=== PATIENT | male | born 1940 | race Caucasian/White ===

== ENCOUNTER 2018-09-21 10:09 | Day surgery (SDC) | payer MEDICARE, SELFPAY ==
--- NOTE | 2018-09-21 07:58 | PM.HP.1 ---
History of Present Illness Date Patient Seen: 09/21/18 Chief complaint: [id number] COLONOSCOPY Narrative: 78-year-old male with a history of bladder cancer status post chemotherapy and cystectomy in 2014 here for colon polyp surveillance. He has a history of an adenomatous colon polyp in 2013. He has had prior rectal surgery for a fistula in 1998 Patient History Medical History Afib (Acute) Bladder cancer (Acute ~2014) Hard of hearing (Acute) History of colon polyps (Acute) Low back pain (Acute) Surgical History H/O nasal septoplasty (Acute) History of appendectomy (Acute) History of orchiectomy (Acute ~1960) History of rectal surgery (Acute) History of tonsillectomy (Acute) Social History household members: spouse Meds Home Medications Medication Instructions Recorded Confirmed Type allopurinol 300 mg PO DAILY 09/21/18 09/21/18 History escitalopram oxalate 20 mg PO DAILY 09/21/18 09/21/18 History Allergies Allergy/AdvReac Type Severity Reaction Status Date / Time No Known Drug Allergies Allergy Verified 09/21/18 10:31 Exam Narrative Exam Narrative: General: Patient is well developed, not in apparent distress Cardiovascular: Regular rate and rhythm, no murmurs, rubs, or gallops; no evidence of edema; no palpable abdominal aortic aneurysm Gastrointestinal: Normoactive bowel sounds, soft, nontender, nondistended, no rebound tenderness, no hepatosplenomegaly, no evidence of hernia; positive surgical scars, positive urostomy bag Assessment & Plan Assessment & Plan narrative: 78-year-old male with history of bladder cancer status post chemotherapy and cystectomy who is here for colon polyp surveillance. Last colonoscopy was performed in 2013 showing an adenomatous colon polyp. Regarding the procedure(s), the risks and potential complications, benefits, and alternatives (including not doing the procedure) were discussed with the patient. The risks include but are not limited to bleeding, splenic injury, infection, perforation which may require surgical intervention, missed lesions, and adverse reactions to sedative medicines. After a question and answer period, the patient agreed to proceed with the procedure(s) and gives informed consent.
[2018-09-21 10:26] VITALS: BP 135/86; PULSE 92; RESP 16; TEMP 36.7; O2SAT 97; BMI 31.4
[2018-09-21] MEDS: SODIUM CHLORIDE 0.9% 1,000 ML 70 ML IV (10:26)
[2018-09-21] MEDS: MIDAZOLAM 5 MG/5 ML VIAL IV (11:46)
[2018-09-21] MEDS: fentaNYL 250 MCG/5 ML INJ IV (11:47)
--- NOTE | 2018-09-21 11:59 | PM.OP.ENDO ---
Operative Date/Time/Diagnoses Date of procedure: 09/21/18 Procedure Notes Procedure in detail: Surgeon: Salvador Perry MD Procedure: Colonoscopy Preoperative diagnosis: Colon polyp surveillance, prior adenoma in 2013 Postoperative diagnosis: Sigmoid diverticulosis, grade 1 internal hemorrhoids Medications: Conscious sedation using 5 mg IV of Midazolam and 150 mcg IV of Fentanyl Preanesthesia Assessment An H and P was performed/updated and the Px?s ASA class is 2. The procedure was discussed in detail with the patient. The potential risks and complications including infection, bleeding, missed lesions, perforation, need for surgery in case of perforation, prolonged hospital stay, and were explained. A brief question and answer period was allotted and once all questions were answered, informed consent was obtained. The patient was brought back to the procedure room and placed on standard monitoring. The patient?s vital signs were monitored continuously throughout the entire procedure. Prior to starting, a timeout was performed to confirm the patient?s identity, allergies, medications, and procedure. Procedure in detail The patient was placed in left lateral decubitus position and once adequate sedation was obtained a CHERIE was performed. The digital rectal examination did not reveal any palpable lesions, but there appeared to be postoperative changes due to his prior anorectal surgery. The tip of the colonoscope was placed in the anal canal and advanced to the rectosigmoid where there was note of an area of fixation. This area was eventually traversed with scope reduction and use of the scope stiffener. Once this area was passed, the colonoscope was advanced without difficulty all the way to the cecum, which was identified by the appendiceal orifice and the ileocecal valve. Careful examination of all pulido of the colon was performed with irrigation of any residual stool. There was no evidence of polyps throughout the entire colon There was note of multiple small to medium-sized diverticula in the sigmoid colon Retroflexion performed in the rectum revealed grade 1 internal hemorrhoids The patient tolerated the procedure well and will be brought back to the recovery area to be discharged once criteria are met. The prep was judged to be good and adequate to identify polyps less than 5 mm. The withdrawal time was 7 min. The total physician intraservice time was 27 min. Complications There were no complications and estimated blood loss was zero. Recommendations: Resume previous diet Continue outPx medications Can consider repeat colonoscopy in 5 years for surveillance however given patient's age and comorbidities this would be optional An emergency contact number was given to the patient for any complications related to the procedure
[2018-09-21 12:02] VITALS: BP 98/66; PULSE 87; RESP 11; O2SAT 95
--- NOTE | 2018-09-21 12:06 | P.DS_ITS ---
History of Present Illness Chief complaint: [id number] COLONOSCOPY Narrative: 78-year-old male with a history of bladder cancer status post chemotherapy and cystectomy in 2014 here for colon polyp surveillance. He has a history of an adenomatous colon polyp in 2013. He has had prior rectal surgery for a fistula in 1998 Discharge Providers Discharge Date: 09/21/18 Primary care physician: Selene Shultz MD Discharge provider: Salvador Perry MD Exam Vital Signs (past 8 hours): - 09/21/18 10:26 Temperature 98.1 F Pulse Rate 92 H Respiratory Rate 16 Blood Pressure 135/86 Pulse Oximetry 97 Oxygen Delivery Method Room Air Narrative Exam Narrative: General: Patient is obese, not in apparent distress Cardiovascular: Regular rate and rhythm, no murmurs, rubs, or gallops; no evidence of edema; no palpable abdominal aortic aneurysm Gastrointestinal: Normoactive bowel sounds, soft, nontender, nondistended, no rebound tenderness, no hepatosplenomegaly, no evidence of hernia; positive urostomy bag and surgical scars Discharge Plan Discharge Plan Patient Disposition: Home Discharge Med Rec/Prescriptions Prescriptions: Continued allopurinol 300 mg Tablet 300 mg PO DAILY RF: 0 escitalopram oxalate 20 mg Tablet 20 mg PO DAILY RF: 0 Follow up/Referrals: Selene Shultz MD [Primary Care Provider] - Discharge Orders: Discharge (Order); Ordered 09/21/18 Ordered By: Salvador Perry Provider Discharge Instructions Diet: Diet as Tolerated Visit Report/Discharge Packet Stand Alone Forms: Colonoscopy Result: [facility] Discharge Data Primary Care Provider: Selene Shultz Attending Provider: Salvador Perry
[2018-09-21 12:12] VITALS: BP 107/73; PULSE 85; RESP 15; TEMP 36.8; O2SAT 94
[2018-09-21 12:24] VITALS: BP 108/76; PULSE 85; RESP 16; TEMP 36.8; O2SAT 95
== END 2018-09-21 12:33 | disposition home or self-care (01) ==
PROVIDERS: Family Provider Internal Medicine; PCP Internal Medicine; Visit Provider Internal Medicine Gastroenterology
PROC: 0DJD8ZZ Inspection of Lower Intestinal Tract, Via Natural or Artificial Opening Endoscopic (ICD-10-PCS; CPT 45378; principal; 2018-09-21 11:30)
DX: Z86.010 Personal history of colon polyps (principal); K57.30 Diverticulosis of large intestine without perforation or abscess without bleeding; K64.0 First degree hemorrhoids; I48.91 Unspecified atrial fibrillation
CPT/HCPCS: G0105; J2250; J3010

== ENCOUNTER → 2020-01-08 16:17 | Outpatient (ROUT) | payer MEDICARE, SELFPAY ==
[2020-01-08 16:48] LABS: BUN Creatinine Ratio 19.8 (6-22); Blood Urea Nitrogen 19 mg/dL (9-20); Calcium 9.4 mg/dL (8.4-10.2); Carbon Dioxide 27 mmol/L (22-32); Chloride 100 mmol/L (98-107); Estimated Glomerular Filt Rate > 60.0 mL/min (>60); Glucose 90 mg/dL (80-110); HEMOLYSIS < 15 (0-50); Potassium 4.1 mmol/L (3.4-5.1); Sodium 135 mmol/L (137-145); Uric Acid 5.6 mg/dL (3.5-8.5)
== END ==
PROVIDERS: Family Provider Internal Medicine; PCP Internal Medicine; Visit Provider Internal Medicine
DX: M10.9 Gout, unspecified (principal)
CPT/HCPCS: 80048; 84550

== ENCOUNTER → 2020-02-05 16:29 | Outpatient (CLI) | payer MEDICARE, SELFPAY ==
--- NOTE | 2020-02-05 16:34 | DI.RAD.S_ITS ---
PROCEDURE: XR HAND RT MIN 3V INDICATIONS: RIGHT HAND PAIN TECHNIQUE: 3 views of the hand(s) acquired. COMPARISON: None. FINDINGS: Bones: No fractures or dislocations. Carpal bones are normally aligned. No suspicious bony lesions. Diffuse moderate interphalangeal osteoarthritis. 1st CMC and triscaphe joint degeneration. Chronic appearing ossicle projects adjacent to the ulnar styloid possibly loose body possible ulnocarpal chondrocalcinosis Soft tissues: No suspicious soft tissue calcifications. 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 on 02/05/2020 at 17:21 Approved by: Bjorn Dunham M.D. on 02/05/2020 at 17:25
== END ==
PROVIDERS: Family Provider Internal Medicine; PCP Internal Medicine; Referring Provider Internal Medicine; Visit Provider Internal Medicine
DX: M79.641 Pain in right hand (principal); M18.11 Unilateral primary osteoarthritis of first carpometacarpal joint, right hand; M19.031 Primary osteoarthritis, right wrist
CPT/HCPCS: 73130

== ENCOUNTER → 2020-04-22 19:53 | Outpatient (ROUT) | payer MEDICARE, SELFPAY ==
[2020-04-22 20:05] LABS: Add Manual Diff / Slide Review NO; Basophils Absolute Auto 0 /uL (0-100); Basophils Percent Auto 0.6 % (0-2); Eosinophils Absolute Auto 100 /uL (0-450); Eosinophils Percent Auto 1.3 % (2-4); Hematocrit 41.2 % (41-53); Hemoglobin 13.6 g/dL (13.5-17.5); Lymphocytes Absolute Auto 1300 /uL (1100-4500); Mean Corpuscular HGB Conc 33.1 % (30-36); Mean Corpuscular Hemoglobin 30.3 PG (26-34); Mean Corpuscular Volume 91.6 fL (80-100); Monocytes Absolute Auto 700 /uL (0-900); Monocytes Percent Auto 8.9 % (3-14); Neutrophils Absolute Auto 5900 /uL (1500-7000); Neutrophils Percent Auto 73.2 % (50-75); Platelet Count 216 X10^3/uL (150-400); Red Blood Cell Count 4.49 X10^6/uL (4.5-5.9); Red Cell Distribution Width 13.9 % (11.6-14.8); White Blood Cell Count 8.1 X10^3/uL (4.5-11.0)
[2020-04-22 20:10] LABS: Alanine Aminotransferase 18 IU/L (<50); Albumin 3.9 g/dL (3.5-5.0); Albumin Globulin Ratio 1.3 (1.0-2.8); Alkaline Phosphatase 79 U/L (38-126); Aspartate Aminotransferase 40 IU/L (17-59); BUN Creatinine Ratio 15.9 (6-22); Bilirubin Total 0.5 mg/dL (0.2-1.3); Blood Urea Nitrogen 14 mg/dL (9-20); Calcium 9.5 mg/dL (8.4-10.2); Carbon Dioxide 30 mmol/L (22-32); Chloride 102 mmol/L (98-107); Estimated Glomerular Filt Rate > 60.0 mL/min (>60); Glucose 86 mg/dL (80-110); HEMOLYSIS < 15 (0-50); Potassium 4.3 mmol/L (3.4-5.1); Sodium 137 mmol/L (137-145); Total Protein 6.9 g/dL (6.3-8.2)
== END ==
PROVIDERS: Family Provider Internal Medicine; PCP Internal Medicine; Visit Provider Internal Medicine
DX: R10.30 Lower abdominal pain, unspecified (principal)
CPT/HCPCS: 80053; 85025

== ENCOUNTER → 2020-04-30 13:00 | Outpatient (CLI) | payer MEDICARE, SELFPAY ==
--- NOTE | 2020-04-30 14:07 | DI.CT.S_ITS ---
PROCEDURE: CT ABDOMEN PELVIS W CON INDICATIONS: Lower abdominal pain, unspecified. History of bladder carcinoma, possible diverticulitis. TECHNIQUE: After the administration of oral and intravenous contrast, 5 mm thick sections acquired from the diaphragms to the symphysis. 5 mm thick coronal and sagittal reformats were performed. For radiation dose reduction, the following was used: automated exposure control, adjustment of mA and/or kV according to patient size. COMPARISON: [facility], CT, CT CHEST ABDOMEN PELVIS WITH CONTRAST, 04/13/2019, 11:23. FINDINGS: Image quality: Excellent. ABDOMEN: Lung bases: Lung bases are clear. Heart size is normal. Solid organs: Liver is normal in size and enhancement. Gallbladder normal in appearance. Biliary system is non-dilated. Pancreas enhances normally. Spleen is normal in size and enhancement. No adrenal nodules. Kidneys are normal in size and enhancement, without hydronephrosis. Peritoneum and bowel: Stomach, small bowel, and colon loops are normal in caliber and wall thickness. No free fluid or air. Nodes and vessels: No retroperitoneal or mesenteric adenopathy. Aorta and inferior vena cava are normal in caliber. Miscellaneous: No ventral hernias. PELVIS: Genitourinary: Bladder has been previously resected. No recurrent neoplasm in the operative bed is found. No regional or distant metastatic disease is suspected. Note is made of a urinary diversion on the right, through an ostomy at the right lower quadrant.. Miscellaneous: No evidence of diverticulitis or neoplasm throughout the pelvis. Bones: No suspicious bony lesions. No vertebral body compression fractures. IMPRESSION: Expected postoperative changes after bladder resection, with no evidence of recurrent neoplasm or distant metastatic disease. No sign of diverticulitis. Expected appearance of ostomy for urinary diversion right lower quadrant. Dictated by: Chepe Diaz M.D. on 04/30/2020 at 15:40 Approved by: Chepe Diaz M.D. on 04/30/2020 at 15:44
== END ==
PROVIDERS: Family Provider Internal Medicine; PCP Internal Medicine; Referring Provider Internal Medicine; Visit Provider Internal Medicine
DX: R10.30 Lower abdominal pain, unspecified (principal); Z90.6 Acquired absence of other parts of urinary tract; Z85.51 Personal history of malignant neoplasm of bladder
CPT/HCPCS: 74177

== ENCOUNTER → 2020-10-03 15:27 | Outpatient (CLI) | payer MEDICARE, SELFPAY ==
[2020-10-03 16:04] LABS: Hematocrit 38.7 % (41-53)
[2020-10-03 16:31] LABS: Estimated Glomerular Filt Rate > 60.0 mL/min (>60); HEMOLYSIS < 15 (0-50); Potassium 4.2 mmol/L (3.4-5.1)
== END ==
PROVIDERS: Family Provider Internal Medicine; PCP Internal Medicine; Referring Provider Otolaryngology Otology & Neurotology; Visit Provider Otolaryngology Otology & Neurotology
DX: Z01.812 Encounter for preprocedural laboratory examination (principal); I10 Essential (primary) hypertension
CPT/HCPCS: 36415; 82565; 84132; 85014

== ENCOUNTER → 2021-05-12 11:01 | Outpatient (CLI) | payer MEDICARE, SELFPAY ==
--- NOTE | 2021-05-12 | DI.MRI.S_ITS ---
PROCEDURE: MR LUMBAR SPINE WO CON INDICATIONS: Spinal stenosis, lumbar region with neurogenic cla TECHNIQUE: Noncontrast sagittal T1 spin echo and T2 fast echo, sagittal STIR, axial T1 and T2 fast spin echo through the lumbar spine. In cases with scoliosis, additional coronal T2 fast spin echo may be performed. COMPARISON: [facility], CR, XR LUMBAR SPINE 2 OR 3 VIEWS, 03/26/2021, 10:42. [facility], CT, CT LUMBAR SPINE WITHOUT CONTRAST, 03/04/2021, 21:35. [facility], CR, XR LUMBAR SPINE 2 OR 3 VIEWS, 03/04/2021, 15:48. FINDINGS: Image quality: Excellent. Alignment and Curvature: There is grade 1 retrolisthesis of L1 on L2, L2 on L3, L4 on L5 measuring 2 mm, 4 mm and 5 mm respectively. Bone Marrow: Marrow is of normal overall signal. Prominent reactive marrow edema with 32% compression deformity is present at L1. Compression deformity with kyphoplasty changes measuring 75% is present at L4. It is noted that there is mild increased marrow edema on STIR sequence. Spinal Cord: Conus medullaris terminates at the L1 level. Visualized cord demonstrates normal signal and size. Paraspinous Soft Tissues: No paravertebral masses. Discs: Moderate to severe multilevel disc desiccation is present. L1-L2: Mild disc bulge without spinal stenosis. The mild bilateral foraminal narrowing, left greater than right with facet and ligamentum flavum hypertrophy. L2-L3: Mild disc bulge with moderate spinal stenosis. Moderate to severe left and moderate right foraminal narrowing with facet and ligamentum flavum hypertrophy. L3-L4: Mild disc bulge with superimposed posterior protrusion. Severe spinal stenosis is present. Severe right and moderate to severe left foraminal narrowing with facet and ligamentum flavum hypertrophy. L4-L5: Mild disc bulge with severe spinal stenosis and canal compression. Severe right foraminal narrowing with compression of the exiting L4 nerve roots. There is severe narrowing with nerve root compression through the left lateral recess. Facet and ligamentum flavum hypertrophy are present. L5-S1: Mild disc bulge with mild spinal stenosis. Moderate to severe left and severe right foraminal narrowing. There is compression of the exiting L5 nerve roots bilaterally much more prominent on the right. IMPRESSION: 1. Subacute compression deformity at L1 without spinal stenosis. 2. Kyphoplasty changes at L4 with persistent reactive marrow edema. This is likely related to recent fracture, although cannot definitively exclude recent subacute injury. 3. Multilevel spinal stenosis most severe at L4-5 with canal compression secondary to disc bulge with contributing effect of facet/ligamentum flavum arthropathy. 4. Multilevel foraminal narrowing most severe from L3-4 through L5-S1 secondary to facet arthropathy. Dictated by: Joann Redd M.D. on 05/12/2021 at 13:36 Approved by: Joann Redd M.D. on 05/12/2021 at 14:48
== END ==
PROVIDERS: Family Provider Internal Medicine; PCP Internal Medicine; Referring Provider Physical Medicine & Rehabilitation Pain Medicine; Visit Provider Physical Medicine & Rehabilitation Pain Medicine
DX: M48.062 Spinal stenosis, lumbar region with neurogenic claudication (principal); M48.07 Spinal stenosis, lumbosacral region; M47.816 Spondylosis without myelopathy or radiculopathy, lumbar region; M47.817 Spondylosis without myelopathy or radiculopathy, lumbosacral region
CPT/HCPCS: 72148

== ENCOUNTER 2021-05-20 15:38 | Emergency (ER) | payer MEDICARE, SELFPAY ==
[2021-05-20 15:44] VITALS: BP 146/92; PULSE 125; RESP 18; TEMP 35.9; O2SAT 98
--- NOTE | 2021-05-20 17:15 | DI.CT.S_ITS ---
PROCEDURE: CT ABDOMEN PELVIS W CON INDICATIONS: generalized abdominal pain. Possible bowel obstruction TECHNIQUE: After the administration of intravenous contrast, axial sections acquired from the lung bases to the pubic symphysis. Coronal and sagittal reformats were performed. For radiation dose reduction, the following was used: automated exposure control, adjustment of mA and/or kV according to patient size. COMPARISON: [facility], MR, MR LUMBAR SPINE WO CON, 05/12/2021, 11:25. [facility], CT, CT ABDOMEN PELVIS W CON, 04/30/2020, 14:11. FINDINGS: Lower thorax: The lung bases are clear. Heart size normal. No hiatal hernia. Liver: Normal in size and attenuation. No contour deformity present. Biliary system: No calcified cholelithiasis or pericholecystic inflammation. No intra or extrahepatic bile duct dilatation. Pancreas: Unremarkable without mass or inflammation evident. Spleen: Normal in size and density. Adrenals: Normal morphology and density. Reproductive system: Unremarkable as visualized. Urinary system: There is been bladder resection with associated surgical clips in the pelvis. Right lower quadrant neobladder with ostomy noted. The distal ureters are dilated, and mild hydronephrosis present, similar to the prior exam. Gastrointestinal system: The bowel is unremarkable without evidence of bowel obstruction or inflammation. The stomach appears unremarkable. Appendix: No findings to suggest acute appendicitis. Peritoneal spaces: No mesenteric or retroperitoneal adenopathy. No free air. No free fluid. Vasculature: Aortic atherosclerotic vascular calcification noted without evidence of aneurysm. Abdominal wall: Right lower quadrant neobladder and ostomy noted. There is now a periosteal hernia containing a loop of small bowel, probably related to the neobladder. Musculoskeletal: Wedge-shaped L1 compression fracture with 20 percent height loss is similar to the prior MR. There is a L4 compression fracture of treated with vertebroplasty, stable from the prior MR as well. IMPRESSION: 1. No evidence of bowel obstruction. 2. Right lower quadrant urinary diversion ostomy now associated with peristomal hernia containing small loop of bowel related to neobladder 3. Stable L1 compression fracture and treated L4 compression fracture, unchanged from prior MRI. 4. Mild bilateral hydronephrosis and hydroureter is within expected limits and stable from prior CT Approved by: Livan Freeman M.D. on 05/20/2021 at 17:57
--- NOTE | 2021-05-20 17:39 | ED.ABDPAIN ---
HPI - Abdominal Pain <Brianda Bermeo PA-C - Last Filed: 05/26/21 09:01> General Chief Complaint: Abdominal Pain Stated Complaint: to get colon cleaned out Time Seen by Provider: 05/20/21 16:34 Source: patient Mode of arrival: Ambulatory Limitations: no limitations History of Present Illness HPI narrative: 80-year-old male with a history of gout presents to the ED with 10 days of constipation. Patient states that he has been taking opioids for pain control status post a spinal surgery since March, which has caused him to be extremely constipated. Patient states that his last good bowel movement was 10 days ago. Patient was seen at [facility] urgent care, prescribed [id number] laxatives with no relief. Patient is here in the ED requesting an enema. Patient endorses some anorexia and nausea. Patient denies fever, chills, chest pain, shortness of breath, cough, abdominal pain, dysuria, flank pain, lightheadedness, dizziness, syncope. Related Data Home Medications Medication Instructions Recorded Confirmed allopurinol 300 mg tablet 300 mg PO DAILY 09/21/18 09/21/18 escitalopram oxalate 20 mg tablet 20 mg PO DAILY 09/21/18 09/21/18 Previous Rx's Medication Instructions Recorded magnesium citrate 100 mg capsule 400 mg PO DAILY PRN #30 cap 05/20/21 Allergies Allergy/AdvReac Type Severity Reaction Status Date / Time No Known Drug Allergies Allergy Verified 09/21/18 10:31 Review of Systems <Brianda Bermeo PA-C - Last Filed: 05/26/21 09:01> Review of Systems ROS Unobtainable: All systems reviewed & are unremarkable except as noted in HPI and below Constitutional Constitutional: Denies chills, Denies fatigue, Denies fever(s), Denies frequent falls, Denies lethargy, Reports poor appetite and Denies weakness Eyes Eyes: Denies change in vision, Denies eye discharge, Denies irritation and Denies loss of vision ENT Ears, Nose, Mouth, and Throat: Denies change in voice, Denies dizziness, Denies neck pain, Denies sore throat and Denies throat swelling Cardiovascular Cardiovascular: Denies chest pain, Denies irregular heart rhythm, Denies lightheadedness, Denies palpitations, Denies dyspnea, Denies dyspnea on exertion and Denies orthopnea Respiratory Respiratory: Denies cough, Denies dyspnea, Denies dyspnea on exertion and Denies wheezing Gastrointestinal Gastrointestinal: Denies abdominal pain, Denies change in bowel habits, Reports constipation, Denies diarrhea, Reports nausea and Denies vomiting Genitourinary Genitourinary: Denies hematuria, Denies flank pain, Denies urinary incontinence and Denies urinary urgency Musculoskeletal Musculoskeletal: Denies back pain, Denies muscle weakness, Denies neck pain, Denies numbness and Denies tingling Integumentary/Breasts Skin/Breast: Denies pruritus, Denies erythema, Denies rash and Denies wounds Neurologic Neurologic: Denies behavioral changes, Denies confusion, Denies dizziness, Denies frequent falls, Denies loss of vision, Denies numbness, Denies tingling and Denies weakness Psychiatric Psychiatric: Denies anxiety, Denies behavioral changes, Denies confusion, Denies depression, Denies homicidal ideation and Denies suicidal ideation Endocrine Endocrine: Denies fatigue, Denies flushing and Denies palpitations Hematologic/Lymphatic Hematologic/Lymphatic: Denies easy bruising Allergic/Immunologic Allergic/Immunologic: Denies urticaria, Denies throat swelling and Denies wheezing Patient History <Brianda Bermeo PA-C - Last Filed: 05/26/21 09:01> Medical History Afib Bladder cancer (~2014) Hard of hearing History of colon polyps Low back pain Surgical History H/O nasal septoplasty History of appendectomy History of orchiectomy (~1960) History of rectal surgery History of tonsillectomy Social History household members: spouse Smoking Status: Never smoker Smoking Status: Never smoker Substance Use Type: does not use Exam <Brianda Bermeo PA-C - Last Filed: 05/26/21 09:01> Initial Vital Signs Initial Vital Signs: Vital Signs Temperature 96.6 F L 05/20/21 15:44 Pulse Rate 125 H 05/20/21 15:44 Respiratory Rate 18 05/20/21 15:44 Blood Pressure 146/92 H 05/20/21 15:44 Pulse Oximetry 98 05/20/21 15:44 Const General: cooperative and healthy appearing [facility] Head: normal to inspection Ears: hearing grossly abnormal bilaterally ( Patient is very hard of hearing) Eyes General: appearance normal, both eyes and all related structures Neck Neck: normal visual inspection Chest Chest: normal inspection of the chest Resp Effort & Inspection: normal respiratory effort and not able to speak in complete sentences Auscultation: clear to auscultation bilaterally Cardio Rate: regular rate Rhythm: regular rhythm GI Inspection: normal to inspection Other: Abdomen is soft, nondistended, nontender to palpation. No CVA tenderness. Neuro General: patient alert, patient awake and patient oriented x3 Extrem General: normal to inspection <Bahman Auguste DO - Last Filed: 05/26/21 10:59> Initial Vital Signs Initial Vital Signs: Vital Signs Temperature 96.6 F L 05/20/21 15:44 Pulse Rate 125 H 05/20/21 15:44 Respiratory Rate 18 05/20/21 15:44 Blood Pressure 146/92 H 05/20/21 15:44 Pulse Oximetry 98 05/20/21 15:44 Course <Brianda Bermeo PA-C - Last Filed: 05/26/21 09:01> Orders Ordered: Discontinued Medications Sodium Biphosphate/Sodium Phosphate (Fleets Enema) 1 each MS NOW ONE Stop: 05/20/21 18:46 Last Admin: 05/20/21 19:39 Dose: 1 each Documented by: SARA Vital Signs Vital signs: Vital Signs - 8 hr 05/20/21 15:44 05/20/21 18:00 05/20/21 18:01 Temperature 96.6 F L Pulse Rate 125 H 107 H Respiratory Rate 18 Blood Pressure 146/92 H 145/67 H Pulse Oximetry 98 100 98 05/20/21 20:42 Temperature 98.1 F Pulse Rate 105 H Respiratory Rate Blood Pressure 135/73 Pulse Oximetry 98 <Bahman Auguste DO - Last Filed: 05/26/21 10:59> Orders Ordered: Discontinued Medications Sodium Biphosphate/Sodium Phosphate (Fleets Enema) 1 each MS NOW ONE Stop: 05/20/21 18:46 Last Admin: 05/20/21 19:39 Dose: 1 each Documented by: SARA Vital Signs Vital signs: Vital Signs - 8 hr 05/20/21 15:44 05/20/21 18:00 05/20/21 18:01 Temperature 96.6 F L Pulse Rate 125 H 107 H Respiratory Rate 18 Blood Pressure 146/92 H 145/67 H Pulse Oximetry 98 100 98 05/20/21 20:42 Temperature 98.1 F Pulse Rate 105 H Respiratory Rate Blood Pressure 135/73 Pulse Oximetry 98 MDM - Abdominal Pain <Hyma VERA Bermeo - Last Filed: 05/26/21 09:01> Medical Records Attestation: I reviewed the patient's medical records. Lab Data Attestation: I reviewed the patient's lab results. Lab results narrative: Labs within normal limits Result diagrams: 05/20/21 17:45 05/20/21 17:45 Labs: Lab Results 05/20/21 05/20/21 05/20/21 Range/Units 17:45 17:45 17:45 WBC 8.9 (4.5-11.0) X10^3/uL RBC 4.06 L (4.5-5.9) X10^6/uL Hgb 11.9 L (13.5-17.5) g/dL Hct 35.8 L (41-53) % MCV 88.2 (80-100) fL MCH 29.2 (26-34) PG MCHC 33.2 (30-36) % RDW 15.9 H (11.6-14.8) % Plt Count 317 (150-400) X10^3/uL Neut % (Auto) 81.3 H (50-75) % Lymph % (Auto) 10.4 L (25-40) % [place] % (Auto) 7.3 (3-14) % Eos % (Auto) 0.3 L (2-4) % Baso % (Auto) 0.7 (0-2) % Neut # (Auto) 7300 H (2316-0566) /uL Lymph # (Auto) 900 L (1303-7613) /uL [place] # (Auto) 600 (0-900) /uL Eos # (Auto) 0 (0-450) /uL Baso # (Auto) 100 (0-100) /uL Sodium 136 L (137-145) mmol/L Potassium 4.1 (3.4-5.1) mmol/L Chloride 99 (98-107) mmol/L Carbon Dioxide 29 (22-32) mmol/L BUN 17 (9-20) mg/dL Creatinine 1.04 (0.66-1.25) mg/dL Estimated GFR > 60.0 (>60) mL/min BUN/Creatinine Ratio 16.3 (6-22) Glucose 98 (80-110) mg/dL Lactate 0.8 (0.7-2.1) mmol/L Calcium 10.2 (8.4-10.2) mg/dL Total Bilirubin 0.3 (0.2-1.3) mg/dL AST 32 (17-59) IU/L ALT 13 (<50) IU/L Alkaline Phosphatase 129 H (38-126) U/L Total Protein 7.5 (6.3-8.2) g/dL Albumin 4.1 (3.5-5.0) g/dL Globulin 3.4 (1.7-4.1) g/dL Albumin/Globulin Ratio 1.2 (1.0-2.8) Lipase 62 (23-300) U/L Point of care testing: Urine Dip Bedside Urine Glucose Negative Bedside Urine Bilirubin - Negative Bedside Urine Ketone - Negative Urine Specific [place] 1.010 Bedside Urine Occult Blood - Negative Bedside Urine pH 6.0 Bedside Urine Protein - Negative Bedside Urine Urobilinogen - Negative Bedside Urine Nitrite - Negative Bedside Urine Leukocytes - Negative Esterase Imaging Data CT scan - abdomen/pelvis: Radiologist's Impression: PROCEDURE:? CT ABDOMEN PELVIS W CON ? INDICATIONS:? generalized abdominal pain.? Possible bowel obstruction ? TECHNIQUE:? After the administration of intravenous contrast, axial sections acquired from the lung bases to the pubic symphysis.? Coronal and sagittal reformats were performed.? For radiation dose reduction, the following was used:? automated exposure control, adjustment of mA and/or kV according to patient size.? ? COMPARISON:? [facility], MR, MR LUMBAR SPINE WO CON, 05/12/2021, 11:25.? [facility], CT, CT ABDOMEN PELVIS W CON, 04/30/2020, 14:11. ? FINDINGS: ? Lower thorax: The lung bases are clear.? Heart size normal.? No hiatal hernia. ? Liver:? Normal in size and attenuation. No contour deformity present. ? Biliary system:? No calcified cholelithiasis or pericholecystic inflammation. No intra or extrahepatic bile duct dilatation. ? Pancreas:? Unremarkable without mass or inflammation evident. ? Spleen:? Normal in size and density. ? Adrenals:? Normal morphology and density. ? Reproductive system:? Unremarkable as visualized. ? Urinary system:? There is been bladder resection with associated surgical clips in the pelvis.? Right lower quadrant neobladder with ostomy noted.? The distal ureters are dilated, and mild hydronephrosis present, similar to the prior exam. ? Gastrointestinal system:? The bowel is unremarkable without evidence of bowel obstruction or inflammation. The stomach appears unremarkable. ? Appendix:? No findings to suggest acute appendicitis. ? Peritoneal spaces:? No mesenteric or retroperitoneal adenopathy.? No free air.? No free fluid.? ? Vasculature:? Aortic atherosclerotic vascular calcification noted without evidence of aneurysm. ? Abdominal wall:? Right lower quadrant neobladder and ostomy noted.? There is now a periosteal hernia containing a loop of small bowel, probably related to the neobladder. ? Musculoskeletal:? Wedge-shaped L1 compression fracture with 20 percent height loss is similar to the prior MR.? There is a L4 compression fracture of treated with vertebroplasty, stable from the prior MR as well. ? IMPRESSION: ? 1. No evidence of bowel obstruction.? ? 2. Right lower quadrant urinary diversion ostomy now associated with peristomal hernia containing small loop of bowel related to neobladder ? 3. Stable L1 compression fracture and treated L4 compression fracture, unchanged from prior MRI.? ? 4. Mild bilateral hydronephrosis and hydroureter is within expected limits and stable from prior CT ? ? ? Approved by: Livan Freeman M.D. on 05/20/2021 at 17:57? MDM Narrative Medical decision making narrative: 80-year-old male with a history of gout presents to the ED with 10 days of constipation. concern for bowel obstruction versus constipation. CT abdomen pelvis was obtained with no acute findings. Patient was given a Fleet enema with moderate relief. Patient discharged home with prescription for magnesium citrate, MiraLax. ED return precautions were discussed, patient verbalized understanding. <Bahman Auguste, DO - Last Filed: 05/26/21 10:59> Lab Data Labs: Lab Results 05/20/21 05/20/21 05/20/21 Range/Units 17:45 17:45 17:45 WBC 8.9 (4.5-11.0) X10^3/uL RBC 4.06 L (4.5-5.9) X10^6/uL Hgb 11.9 L (13.5-17.5) g/dL Hct 35.8 L (41-53) % MCV 88.2 (80-100) fL MCH 29.2 (26-34) PG MCHC 33.2 (30-36) % RDW 15.9 H (11.6-14.8) % Plt Count 317 (150-400) X10^3/uL Neut % (Auto) 81.3 H (50-75) % Lymph % (Auto) 10.4 L (25-40) % [place] % (Auto) 7.3 (3-14) % Eos % (Auto) 0.3 L (2-4) % Baso % (Auto) 0.7 (0-2) % Neut # (Auto) 7300 H (4182-7179) /uL Lymph # (Auto) 900 L (9529-1725) /uL [place] # (Auto) 600 (0-900) /uL Eos # (Auto) 0 (0-450) /uL Baso # (Auto) 100 (0-100) /uL Sodium 136 L (137-145) mmol/L Potassium 4.1 (3.4-5.1) mmol/L Chloride 99 (98-107) mmol/L Carbon Dioxide 29 (22-32) mmol/L BUN 17 (9-20) mg/dL Creatinine 1.04 (0.66-1.25) mg/dL Estimated GFR > 60.0 (>60) mL/min BUN/Creatinine Ratio 16.3 (6-22) Glucose 98 (80-110) mg/dL Lactate 0.8 (0.7-2.1) mmol/L Calcium 10.2 (8.4-10.2) mg/dL Total Bilirubin 0.3 (0.2-1.3) mg/dL AST 32 (17-59) IU/L ALT 13 (<50) IU/L Alkaline Phosphatase 129 H (38-126) U/L Total Protein 7.5 (6.3-8.2) g/dL Albumin 4.1 (3.5-5.0) g/dL Globulin 3.4 (1.7-4.1) g/dL Albumin/Globulin Ratio 1.2 (1.0-2.8) Lipase 62 (23-300) U/L Point of care testing: Urine Dip Bedside Urine Glucose Negative Bedside Urine Bilirubin - Negative Bedside Urine Ketone - Negative Urine Specific [place] 1.010 Bedside Urine Occult Blood - Negative Bedside Urine pH 6.0 Bedside Urine Protein - Negative Bedside Urine Urobilinogen - Negative Bedside Urine Nitrite - Negative Bedside Urine Leukocytes - Negative Esterase Discharge Plan Departure Patient Disposition: Home Clinical Impression: Constipation Instructions: DI for Constipation Activity Restrictions/Additional Instructions: You were evaluated in the ED today for constipation. Your CT abdomen pelvis was normal. You were given an enema today in the ED. You may take magnesium citrate at home for further relief of constipation. You can take MiraLax once a day to avoid future constipation. Please return to the ED if you notice worsening abdominal pain, fever, chills. Prescriptions: New magnesium citrate 100 mg capsule 400 mg PO DAILY PRN (Reason: constipation) Qty: 30 0RF No Action allopurinol 300 mg Tablet 300 mg PO DAILY 0RF escitalopram oxalate 20 mg Tablet 20 mg PO DAILY 0RF Referrals: Selene Shultz MD [Primary Care Provider] - <Bahman Auguste DO - Last Filed: 05/26/21 10:59> Cosign ED Attending Cosignature Attestation: Dr Auguste Co-Sign Statement: I was available for consultation during this patient's emergency department visit. This chart is signed by myself for administrative purposes only. I did not have direct contact with this patient during this visit. They were seen independently by the APC.
[2021-05-20 18:00] VITALS: O2SAT 100
[2021-05-20 18:01] VITALS: BP 145/67; PULSE 105; PULSE 107; O2SAT 98
[2021-05-20 18:02] LABS: Add Manual Diff / Slide Review NO; Basophils Absolute Auto 100 /uL (0-100); Basophils Percent Auto 0.7 % (0-2); Eosinophils Absolute Auto 0 /uL (0-450); Eosinophils Percent Auto 0.3 % (2-4); Hematocrit 35.8 % (41-53); Hemoglobin 11.9 g/dL (13.5-17.5); Lymphocytes Absolute Auto 900 /uL (1100-4500); Lymphocytes Percent Auto 10.4 % (25-40); Mean Corpuscular HGB Conc 33.2 % (30-36); Mean Corpuscular Hemoglobin 29.2 PG (26-34); Mean Corpuscular Volume 88.2 fL (80-100); Monocytes Absolute Auto 600 /uL (0-900); Monocytes Percent Auto 7.3 % (3-14); Neutrophils Absolute Auto 7300 /uL (1500-7000); Neutrophils Percent Auto 81.3 % (50-75); Platelet Count 317 X10^3/uL (150-400); Red Blood Cell Count 4.06 X10^6/uL (4.5-5.9); Red Cell Distribution Width 15.9 % (11.6-14.8); White Blood Cell Count 8.9 X10^3/uL (4.5-11.0)
[2021-05-20 18:15] LABS: Lactate (Lactic Acid) 0.8 mmol/L (0.7-2.1)
[2021-05-20 18:16] LABS: Alanine Aminotransferase 13 IU/L (<50); Albumin 4.1 g/dL (3.5-5.0); Albumin Globulin Ratio 1.2 (1.0-2.8); Alkaline Phosphatase 129 U/L (38-126); Aspartate Aminotransferase 32 IU/L (17-59); BUN Creatinine Ratio 16.3 (6-22); Bilirubin Total 0.3 mg/dL (0.2-1.3); Blood Urea Nitrogen 17 mg/dL (9-20); Calcium 10.2 mg/dL (8.4-10.2); Carbon Dioxide 29 mmol/L (22-32); Chloride 99 mmol/L (98-107); Estimated Glomerular Filt Rate > 60.0 mL/min (>60); Globulin 3.4 g/dL (1.7-4.1); Glucose 98 mg/dL (80-110); HEMOLYSIS < 15 (0-50); Lipase 62 U/L (23-300); Potassium 4.1 mmol/L (3.4-5.1); Sodium 136 mmol/L (137-145); Total Protein 7.5 g/dL (6.3-8.2)
[2021-05-20] MEDS: FLEETS ENEMA 1 EACH PR (19:39)
[2021-05-20 20:42] VITALS: BP 135/73; PULSE 105; TEMP 36.7; O2SAT 98
== END 2021-05-20 21:00 | disposition home or self-care (01) ==
PROVIDERS: Emergency Provider Student in an Organized Health Care Education/Training Program; Family Provider Internal Medicine; PCP Internal Medicine
DX: K59.00 Constipation, unspecified (principal)
CPT/HCPCS: 74177; 80053; 81003; 83605; 83690; 85025; 99282; 99283; Q9967

== ENCOUNTER → 2023-03-26 09:22 | Outpatient (CLI) | payer MEDICARE, OTHER, SELFPAY ==
--- NOTE | 2023-03-26 09:28 | DI.CT.S_ITS ---
PROCEDURE: CT ABDOMEN PELVIS W CON INDICATIONS: LEFT UPPER QUADRANT ABDOMINAL PAIN TECHNIQUE: After the administration of oral and intravenous contrast, axial sections were acquired from the lung bases to the pubic symphysis. Coronal and sagittal reformats were performed. For radiation dose reduction, the following was used: automated exposure control, adjustment of mA and/or kV according to patient size. COMPARISON:[facility], CT, CT ABDOMEN PELVIS W CON, 05/20/2021, 18:23. FINDINGS: Image quality: Excellent. Lung bases: Mild reticulation without bronchiectasis. Heart: No significant findings. ABDOMEN: Liver: Unremarkable. Gallbladder: Unremarkable. Biliary ducts: Unremarkable. Pancreas: Unremarkable. Spleen: Unremarkable. Adrenal Glands: Unremarkable. Kidneys and Ureters: Mild urothelial wall thickening. No hydronephrosis.. Stomach and Bowel: Colonic diverticulosis without evidence of diverticulitis. Peritoneum: No abnormal intraperitoneal fluid. No free air. Ventral Wall: Peristomal hernia the right lower quadrant, containing nonobstructed bowel Abdominal Nodes: No retroperitoneal or mesenteric adenopathy by size criteria. Vessels: Aorta and inferior vena cava are normal in size. PELVIS: Pelvic Organs: Prostatectomy. Bladder: Cystectomy. Pelvic Nodes: No enlarged lymph nodes. Miscellaneous: Small, fat containing inguinal hernias. Bones: Compression deformities of the L1 and L4 vertebral bodies, without endplate retropulsion. Mild anterior wedging of the T11 vertebral body. IMPRESSION: Radical cystoprostatectomy, without abnormal lymph nodes or evidence of local recurrence. Mild urothelial wall thickening, which may indicate infection. Peristomal hernia of the right lower quadrant, with nonobstructed bowel. Dictated by: Devin Lundberg M.D. on 03/26/2023 at 13:01 Approved by: Devin Lundberg M.D. on 03/26/2023 at 13:21
[2023-03-26 10:10] LABS: Estimated Glomerular Filt Rate > 60 mL/min (>60)
== END ==
PROVIDERS: Radiology Diagnostic Radiology; PCP Internal Medicine; Referring Provider Internal Medicine; Visit Provider Internal Medicine
DX: K43.5 Parastomal hernia without obstruction or gangrene (principal); R10.12 Left upper quadrant pain; I48.91 Unspecified atrial fibrillation
CPT/HCPCS: 36415; 74177; 82565; Q9967

== ENCOUNTER → 2023-11-18 13:37 | Outpatient (CLI) | payer MEDICARE, OTHER, SELFPAY ==
--- NOTE | 2023-11-18 | DI.RAD.S_ITS ---
PROCEDURE: XR CHEST 2V INDICATIONS: SUBACUTE COUGH TECHNIQUE: 2 views of the chest were acquired. COMPARISON: [facility], , CHEST 2 VIEW, 09/10/2014, 17:08., CT abdomen pelvis 03/26/2023 FINDINGS: Surgical changes and devices: None. Lungs and pleura: Lungs are clear. No pleural effusions or pneumothorax. Mediastinum: Mediastinal contours are normal. Heart size is normal. Bones and chest wall: Chronic T11 and L1 compression deformities. Soft tissues appear unremarkable. IMPRESSION: No acute cardiopulmonary abnormality is seen. Chronic T11 and L1 compression deformities. Approved by: Lili Ha M.D.,Ph.D. on 11/18/2023 at 22:30
== END ==
PROVIDERS: PCP Internal Medicine; Referring Provider Internal Medicine; Visit Provider Internal Medicine
DX: R05.2 Subacute cough (principal); M43.8X5 Other specified deforming dorsopathies, thoracolumbar region
CPT/HCPCS: 71046

== ENCOUNTER → 2024-02-16 13:16 | Outpatient (CLI) | payer MEDICARE, OTHER, SELFPAY ==
--- NOTE | 2024-02-16 | DI.CT.S_ITS ---
PROCEDURE: CT ABDOMEN PELVIS WO CON INDICATIONS: FLANK PAIN TECHNIQUE: Axial sections were acquired from the lung bases to the pubic symphysis. Coronal and sagittal reformats were performed. For radiation dose reduction, the following was used: automated exposure control, adjustment of mA and/or kV according to patient size. COMPARISON: [facility], CT, ABDOMEN/PELVIS WITHOUT CONTRAS, 10/15/2014, 9:10. FINDINGS: Image quality: Diagnostic. Lower Chest: Scarring and/or atelectasis along the dependent portions of the lungs. Coronary artery calcifications. URINARY: Right Kidney: No stone. The renal pelvis is mildly dilated. Right Ureter: Mildly prominent Left Kidney: No stone. The renal pelvis is mildly dilated. Left Ureter: Mildly prominent Bladder: Absent. Ileal conduit is present. ABDOMEN: Liver: No contour-deforming solid mass. Gallbladder: No radiopaque gallstones or wall thickening. Biliary ducts: No biliary dilation. Pancreas: No ductal dilation. Spleen: Size is within normal limits. Adrenal Glands: No adrenal nodules. Stomach and Bowel: Normal colonic caliber, without significant wall thickening. Rectal anastomosis. Diffuse colonic diverticulosis without diverticulitis. Just proximal to the ileal conduit, there is a 0.6 cm calculus. There is an ileostomy. Peritoneum: No abnormal intraperitoneal fluid. No free air. Clips within the pelvis. Ventral Wall: No hernia. Abdominal Nodes: No enlarged retroperitoneal or mesenteric lymph nodes. Vessels: Aorta and inferior vena cava are normal in size. Scattered calcified arthrosclerotic plaques within the abdominal aorta. PELVIS: Pelvic Organs: The urinary bladder is absent. Pelvic Nodes: Unremarkable. Miscellaneous: No inguinal hernias are seen. Bones: Vertebral plasty changes and severe compression deformity of the L4 vertebral body. There is a compression deformity of the L1 vertebral body resulting in approximately 50 percent height loss. This is of uncertain chronicity but is new since 2015. There is a cortical defect along the superior endplate of T12 appreciable height loss. IMPRESSION: 1. Patient is status post cystectomy. 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 Just proximal to the ileal conduit, there is a 0.6 cm stone felt to represent a recently passed ureteral calculus. 2. The ureters are mildly dilated without an an obstructing ureteral calculus. No calculus within the kidneys. 3. There is a compression deformity of the L1 vertebral body resulting in approximately 50 percent height loss. This finding is of uncertain chronicity but is new since 2014. There is a cortical defect along the superior endplate of T12 without appreciable height loss. This may also correspond to a compression deformity. Clinical correlation is suggested. Dictated by: Inocencio Mcclelland M.D. on 02/17/2024 at 13:48 Approved by: Inocencio Mcclelland M.D. on 02/17/2024 at 14:30
== END ==
LOC: CT 13:16
PROVIDERS: PCP Internal Medicine; Referring Provider Internal Medicine; Visit Provider Internal Medicine
DX: K57.90 Diverticulosis of intestine, part unspecified, without perforation or abscess without bleeding (principal); R10.9 Unspecified abdominal pain; M43.8X6 Other specified deforming dorsopathies, lumbar region; I70.0 Atherosclerosis of aorta; Z90.6 Acquired absence of other parts of urinary tract; Z98.0 Intestinal bypass and anastomosis status; Z93.2 Ileostomy status
CPT/HCPCS: 74176

== ENCOUNTER → 2024-04-19 12:16 | Outpatient (CLI) | payer MEDICARE, OTHER, SELFPAY ==
--- NOTE | 2024-04-19 12:17 | DI.RAD.S_ITS ---
PROCEDURE: XR DEXA AXIAL SKELETON INDICATIONS: OSTEOPENIA F/U COMPARISON: None. FINDINGS: Lumbar Spine: Bone mineral density 1.0 g/cm2, T score -0.5. Vertebral cement is noted L4. Left Hip: Bone mineral density 0.867 g/cm2, T score -0.6. Left Femoral Neck: Bone mineral density 0.661 g/cm2, T score -1.7. Right Hip: Bone mineral density 0.842 g/cm2, T score -0.8. Right Femoral Neck: Bone mineral density 0.660 g/cm2, T score -1.7. Fracture Risk Calculation (when applicable): 10-year fracture risk of a major osteoporotic fracture 12 percent and of a hip fracture 4.4 percent. (T score greater or equal to -1.0 to: NORMAL) (T score from -1.1 to -2.4: OSTEOPENIA) (T score less than or equal to -2.5: OSTEOPOROSIS) IMPRESSION: Moderate osteopenia in the left femoral and right femoral necks. Follow-up guidelines as follows: Osteoporosis: Consider a repeat DEXA and Vertebral Fracture Assessment (VFA) exam in 2 years or sooner if medically necessary, to reassess this patient's status. Osteopenia: Consider a repeat DEXA in 2-3 years to reassess this patient's status, or if there is a new clinical indication. Normal: Consider a repeat DEXA in 5 years or sooner, or if there is a new clinical indication. All treatment decisions require clinical judgment and consideration of individual patient factors, including patient preferences, comorbidities, previous drug use, risk factors not captured in the FRAX model (e.g., frailty, falls, vitamin D deficiency, increased bone turnover, interval significant decline in bone density ) and possible under- or over-estimation of fracture risk by FRAX. In addition, the NOF Guide recommends that FDA-approved medical therapies be considered in postmenopausal women and men age >= 50 years with a: * Hip or vertebral (clinical or morphometric) fracture * T-score of <=-2.5 at the spine or hip * Ten-year fracture probability by FRAX of >= 3% for hip fracture or >=20% for major osteoporotic fracture. People with diagnosed cases of osteoporosis or at high risk for fracture should have regular bone mineral density tests. For patients eligible for Medicare, routine testing is allowed once every 2 years. The testing frequency can be increased to one year for patients who have rapidly progressing disease, those who are receiving or discontinuing medical therapy to restore bone mass, or have additional risk factors. Dictated by: Joann Redd M.D. on 04/19/2024 at 16:59 Approved by: Joann Redd M.D. on 04/19/2024 at 17:01
== END ==
LOC: RAD 12:17
PROVIDERS: PCP Internal Medicine; Referring Provider Internal Medicine; Visit Provider Internal Medicine
DX: M85.89 Other specified disorders of bone density and structure, multiple sites (principal)
CPT/HCPCS: 77080

== ENCOUNTER → 2024-05-19 09:15 | Outpatient (CLI) | payer MEDICARE, OTHER, SELFPAY ==
--- NOTE | 2024-05-19 09:16 | DI.ECHO.S_ITS ---
[facility] : : [address] : : [place] : : [id number] : : Phone: [phone] Echocardiogram Report + + :Name: RACHAEL QUEZADA Study Date: 05/19/2024 Height: 70 in : :[facility] ReadingLocation: Weight: 220 lb : : Gender: Male BSA: 2.2 m2 : :: 1940 Age: 83 yrs BP: 117/67 mmHg: :Reason For Study: PALPITATIONS : :Ordering Physician: NINFA, : :SASHA Performed By: Boaz Pringle : :Referring: SASHA OCASIO : + + Interpretation Summary Normal sinus rhythm. Normal LV size, wall thickness, wall motion and LV systolic function. EF is 60-65%. Stage I diastolic dysfunction. Mild LA enlargement; otherwise normal chamber sizes. Aortic valve is a trileaflet structure with moderately thickened and calcified leaflets; there is mild associated aortic stenosis and regurgitation. Peak velocity is 2.1 m/sec with mean gradient of 11 mm Hg. Mild mitral annular calcification. Mildly dilated ascending aorta. No prior study available for comparison. Procedure: A two-dimensional transthoracic echocardiogram with color flow and Doppler was performed. The study quality was technically good. There is no prior echocardiogram noted for this patient. The patient was in normal sinus rhythm during the exam. Left Ventricle: The left ventricle is normal in size. There is normal left ventricular wall thickness. There is no ventricular septal defect visualized. The ejection fraction is estimated to be 60-65%. There are no focal wall motion abnormalities. Right Ventricle: The right ventricle is mildly dilated. The right ventricular systolic function is normal. Atria: The left atrium is mildly dilated. There is no Doppler evidence for an atrial septal defect. Mitral Valve: The mitral valve leaflets are mildly calcified. There is mild mitral annular calcification. There is trace mitral regurgitation. Aortic Valve: The aortic valve is trileaflet. The aortic valve is mildly calcified. There is mild aortic regurgitation. Tricuspid Valve: The tricuspid valve is normal in structure and function. There is trace tricuspid regurgitation. Pulmonic Valve: The pulmonic valve is normal in structure and function. There is trace pulmonic regurgitation. Great Vessels: The aortic root is borderline dilated. The ascending aorta is mildly enlarged. The pulmonary artery is normal size. The IVC is dilated (diameter is greater than 2.1 cm) yet it collapses greater than 50% with a sniff. This suggests a right atrial pressure of 8 mm Hg. Pericardium/ Pleura There is no pericardial effusion. There is no pleural effusion. MMode/2D Measurements & Calculations LVIDd: 5.0 cm LVOT diam: 1.9 cm LVIDs: 3.0 cm Ao root diam: 3.6 cm FS: 39.5 % asc Aorta Diam: 3.9 cm EPSS: 0.67 cm Ao Arch Diam (Prox Trans): 2.0 cm IVSd: 1.0 cm LVPWd: 0.96 cm LV gibson. diameter/BSA (cm/m^2): 2.3 LV sys. diameter/BSA (cm/m^2): 1.4 LA A2 area: 21.5 cm2 RA long axis: 5.1 cm LA A4 area: 26.6 cm2 RA area: 19.6 cm2 LA length (vol): 7.1 cm RA vol: 64.3 ml LA vol: 68.2 ml RA : 29.6 ml/m2 LA vol index: 31.4 ml/m2 IVC diam: 2.3 cm RVD1 (basal): 4.2 cm RVD2 (mid): 3.5 cm TAPSE: 2.7 cm Doppler Measurements & Calculations Ao V2 max: 212.2 cm/sec LVOT Max Manas: 111.7 cm/sec Ao V2 mean: 152.1 cm/sec LV V1 max P.0 mmHg Ao max P.0 mmHg LV V1 VTI: 26.9 cm Ao mean P.5 mmHg LAMAR(I,D): 1.6 cm2 Ao V2 VTI: 51.0 cm LAMAR(V,D): 1.6 cm2 sev ratio: 0.53 LAMAR indexed to BSA (cm^2/m^2): 0.72 MV E max manas: 74.3 cm/sec PA V2 max: 79.1 cm/sec MV A max manas: 115.6 cm/sec PA V2 mean: 54.8 cm/sec MV E/A: 0.64 PA mean P.3 mmHg Med Peak E' Manas: 4.9 cm/sec PA pr(Accel): 36.2 mmHg E/E' med: 15.0 Lat Peak E' Manas: 6.1 cm/sec E/E' lat: 12.1 E/e' average: 13.6 MV dec time: 0.25 sec SV(LVOT): 79.9 ml Electronically signed by: Estelle Roe M.D. on Reading Physician:05/20/2024 03:32 AM
== END ==
LOC: ECHO 09:16
PROVIDERS: PCP Internal Medicine; Referring Provider Internal Medicine; Visit Provider Internal Medicine
DX: I77.810 Thoracic aortic ectasia (principal); I34.81 Nonrheumatic mitral (valve) annulus calcification; I35.1 Nonrheumatic aortic (valve) insufficiency; R00.2 Palpitations
CPT/HCPCS: 93306

== ENCOUNTER → 2025-01-04 13:30 | Outpatient (CLI) | payer MEDICARE, OTHER, SELFPAY ==
--- NOTE | 2025-01-04 13:33 | DI.US.S_ITS ---
PROCEDURE: US CAROTID DOPPLER BI INDICATIONS: TIA TECHNIQUE: Color and pulse Doppler interrogation was performed of both carotid systems, with image documentation and velocity measurements. COMPARISON: None. FINDINGS: Stenosis calculations are based on SRU (Society of Radiologists in Ultrasound) criteria. Right side: Brachial blood pressure: 117/67 mm Hg. Common carotid artery peak systolic velocity: 88 cm/sec. Internal carotid artery peak systolic velocity: 109 cm/sec. Internal carotid artery end diastolic velocity: 24 cm/sec. External carotid artery peak systolic velocity: 64 cm/sec. ICA/CCA peak systolic ratio: 1.24. Tucker scale imaging description: Moderate plaque Percent internal carotid artery stenosis: Less than 50% stenosis . Vertebral artery: Flow direction is antegrade. Left side: Brachial blood pressure: 122/72 mm Hg. Common carotid artery peak systolic velocity: 52 cm/sec. Internal carotid artery peak systolic velocity: 65 cm/sec. Internal carotid artery end diastolic velocity: 15 cm/sec. External carotid artery peak systolic velocity: 93 cm/sec. ICA/CCA peak systolic ratio: 1.24. Tucker scale imaging description: Mild plaque Percent internal carotid artery stenosis: Less than 50% stenosis. Vertebral artery: Flow direction is antegrade. IMPRESSION: 1. Right ICA: Less than 50 % stenosis. 2. Left ICA: Less than 50 % stenosis. 3. Antegrade flow in the bilateral vertebral arteries. Dictated by: Glen Weldon M.D. on 01/04/2025 at 20:57 Approved by: Glen Weldon M.D. on 01/04/2025 at 21:00
== END ==
PROVIDERS: PCP Internal Medicine; Referring Provider Internal Medicine; Visit Provider Internal Medicine
DX: G45.9 Transient cerebral ischemic attack, unspecified (principal)
CPT/HCPCS: 93880